=== PATIENT | female | born 1995 | race Caucasian/White ===

== ENCOUNTER 2018-12-26 17:03 | Emergency (ER) | payer OTHER ==
[~2018-12-26] VITALS: Ht 152.4 cm; Wt 85.8 kg
[~2018-12-26 17:03] MED LIST: CEPH250C16 PO; PREN-385 PO
[2018-12-26 17:11] VITALS: BP 121/69
--- NOTE | 2018-12-26 17:35 | NUR ---
DR. JAIN BEDSIDE EVALUATING PT
--- NOTE | 2018-12-26 17:48 | NUR ---
PATIENT PRESENTS TO ED WITH C/O ABDOMINAL PAIN, NAUSEA AND VOMITING X TODAY. PT DENIES ANY FEVER, DIARRHEA OR DYSURIA. PATIENT STATES PAIN OF 8/10 AT THIS TIME; VSS; PATIENT POSITIONED FOR COMFORT; HOB ELEVATED; BEDRAILS UP X1; BED DOWN.
--- NOTE | 2018-12-26 17:56 | NUR ---
PT TAKEN TO RAD
[2018-12-26 18:02] LABS: APPEARANCE,URINE HAZY (CLEAR); BILIRUBIN,URINE 1+ (NEGATIVE); BLOOD, URINE 3+ (NEGATIVE); COLOR,URINE YELLOW (YELLOW); LEUKOCYTE ESTERASE ,URINE 1+ (NEGATIVE); NITRITE, URINE NEGATIVE (NEGATIVE); PH,URINE 6.5 (5.0-9.0); UGLUCOSE NEGATIVE (NEGATIVE)
[2018-12-26 18:34] LABS: RBC,URINE 80-100 /HPF (0-5); WBC,URINE 16-25 (MOD) /HPF (0-5)
[2018-12-26 19:10] VITALS: BP 112/62
--- NOTE | 2018-12-26 19:10 | NUR ---
Patient discharged with v/s stable. Written and verbal after care instructions given and explained. Patient alert, oriented and verbalized understanding of instructions. Ambulatory with steady gait. All questions addressed prior to discharge. ID band removed. Patient advised to follow up with PMD. Rx of CIPRO AND PYRIDIUM given. Patient educated on indication of medication including possible reaction and side effects. Opportunity to ask questions provided and answered.
== END 2018-12-26 19:10 | disposition home or self-care (01) ==
LOC: MED 17:03
DX: N39.0 Urinary tract infection, site not specified (principal); Z79.899 Other long term (current) drug therapy
CPT/HCPCS: 74021; 81001; 81002; 81025; 87086; 99284

== ENCOUNTER 2019-03-24 14:31 | Emergency (ER) | payer OTHER ==
[~2019-03-24] VITALS: Ht 153 cm; Wt 88.6 kg
[2019-03-24 14:33] VITALS: BP 123/85
--- NOTE | 2019-03-24 14:39 | NUR ---
PT AMBULATED TO THE BATHROOM WITH STEADY GAIT. URINE CUP GIVEN.
--- NOTE | 2019-03-24 14:56 | NUR ---
PATIENT PRESENTS TO ED WITH C/O ABDOMINAL PAIN. PT STATES LLQ PAIN X2 DAYS. DENIES N/V/D; SKIN IS PINK/WARM/DRY; AAOX4 WITH EVEN AND STEADY GAIT; LUNGS CLEAR BL; HR EVEN AND REGULAR; PT DENIES ANY FEVER, CP, SOB, OR COUGH AT THIS TIME; PATIENT STATES PAIN OF 9/10 AT THIS TIME; VSS; PATIENT POSITIONED FOR COMFORT; HOB ELEVATED; BEDRAILS UP X2; BED DOWN. ER MD MADE AWARE OF PT STATUS.
[2019-03-24 15:29] LABS: BASOPHILS % (AUTO) 0.6 % (0.0-2.0); EOSINOPHILS # (AUTO) 0.1 K/uL (0-0.4); EOSINOPHILS % (AUTO) 0.9 % (0.0-4.0); HEMATOCRIT 35.7 % (36-48); HEMOGLOBIN 11.7 g/dL (12.0-16.0); LYMPHOCYTES # (AUTO) 2.4 K/uL (2.5-16.5); LYMPHOCYTES % (AUTO) 29.6 % (20.5-51.1); MEAN CORPUSCULAR HEMOGLOBIN 25 pg (27-31); MEAN CORPUSCULAR HGB CONC 33 g/dL (33-37); MEAN CORPUSCULAR VOLUME 77.2 fL (80-94); MONOCYTES # (AUTO) 0.5 K/uL (0.8-1.0); MONOCYTES % (AUTO) 6.7 % (1.7-9.3); NEUTROPHILS % (AUTO) 62.2 % (42.2-75.2); PLATELET COUNT (AUTO) 243 K/uL (140-450); RED BLOOD CELL COUNT(AUTO) 4.63 MIL/uL (4.20-5.40); RED CELL DISTRIBUTION WIDTH 14.8 % (11.6-13.7)
[2019-03-24 15:56] LABS: ANION GAP 12.9 (8-16); CARBON DIOXIDE 27.5 mmol/L (21-32); POTASSIUM 3.4 mmol/L (3.5-5.1)
[2019-03-24 15:57] LABS: ALBUMIN 3.3 g/dL (3.4-5.0); CREATININE 0.7 mg/dL (0.6-1.3); TOTAL BILIRUBIN 0.2 mg/dL (0.0-1.0)
[2019-03-24 16:51] VITALS: BP 123/85
--- NOTE | 2019-03-24 16:52 | NUR ---
Patient discharged with v/s stable. Written and verbal after care instructions given and explained. Patient verbalized understanding. Ambulatory with steady gait. All questions addressed prior to discharge. Advised to follow up with PMD.
== END 2019-03-24 16:52 | disposition home or self-care (01) ==
LOC: MED 14:31
DX: O26.899 Other specified pregnancy related conditions, unspecified trimester (principal); R10.32 Left lower quadrant pain; Z79.899 Other long term (current) drug therapy
CPT/HCPCS: 36415; 76801; 80053; 81002; 81025; 84702; 85025; 86900; 86901; 99284; Q0092

== ENCOUNTER 2019-05-07 18:11 | Emergency (ER) | payer OTHER ==
[~2019-05-07] VITALS: Ht 152.4 cm; Wt 88.5 kg
[2019-05-07 18:14] VITALS: BP 140/80
--- NOTE | 2019-05-07 18:14 | NUR ---
Patient ambulated to bed 7. RN evaluating patient at bedside.
[2019-05-07] MEDS ORDERED: NACL 0.9% 1,000 ML IV SCH (18:22)
[2019-05-07] MEDS ORDERED: ONDANSETRON 4 MG/2 ML VIAL IVP ONE (18:25)
--- NOTE | 2019-05-07 18:30 | NUR ---
23 Y/O FEMALE C/O HEMATEMESIS X 3 DAYS. VOMITING 10X DAILY KAMRYN RED. TAKING ZOFRAN ODT TO NO RELIEF. A/O X3; FOLLOWS COMMANDS;PERRLA +3. STATES DIZZINESS, WEAKNESS. 9/10 ABD CRAMPING PAIN. 10 WKS , LMP 02/16/19. . ERMD MADE AWARE. SIDE RAILSX1. HX- NONE NKDA
[2019-05-07 18:45] LABS: BASOPHILS % (AUTO) 0.3 % (0.0-2.0); EOSINOPHILS # (AUTO) 0.1 K/uL (0-0.4); EOSINOPHILS % (AUTO) 0.5 % (0.0-4.0); HEMATOCRIT 36.8 % (36-48); HEMOGLOBIN 11.8 g/dL (12.0-16.0); LYMPHOCYTES # (AUTO) 2.8 K/uL (2.5-16.5); LYMPHOCYTES % (AUTO) 21.3 % (20.5-51.1); MEAN CORPUSCULAR HEMOGLOBIN 25 pg (27-31); MEAN CORPUSCULAR HGB CONC 32 g/dL (33-37); MEAN CORPUSCULAR VOLUME 78.6 fL (80-94); MONOCYTES # (AUTO) 0.7 K/uL (0.8-1.0); MONOCYTES % (AUTO) 5.6 % (1.7-9.3); NEUTROPHILS # (AUTO) 9.4 K/uL (1.8-7.7); NEUTROPHILS % (AUTO) 72.3 % (42.2-75.2); PLATELET COUNT (AUTO) 262 K/uL (140-450); RED BLOOD CELL COUNT(AUTO) 4.69 MIL/uL (4.20-5.40); RED CELL DISTRIBUTION WIDTH 14.2 % (11.6-13.7)
[2019-05-07 18:56] LABS: ANION GAP 16.4 (8-16); CARBON DIOXIDE 21.9 mmol/L (21-32); CREATININE 0.5 mg/dL (0.6-1.3); POTASSIUM 3.3 mmol/L (3.5-5.1)
[2019-05-07 18:59] LABS: PROTHROMBIN TIME 9.9 secs (10.8-13.4)
[2019-05-07 19:01] LABS: ALBUMIN 3.1 g/dL (3.4-5.0); TOTAL BILIRUBIN 0.1 mg/dL (0.0-1.0)
--- NOTE | 2019-05-07 19:12 | NUR ---
Pt report given to TRISTON KAY. Transfer of care at this time.
--- NOTE | 2019-05-07 19:51 | NUR ---
Dr. Mendieta examining patient.
[2019-05-07 20:15] VITALS: BP 140/80
--- NOTE | 2019-05-07 20:15 | NUR ---
PT DISCHARGED WITH PAPERWORK. RX DICLEGIS FOR N/V. EDUCATED PT REGARDING MEDICATION AND S/E. EDUCATED PT REGARDING D/C DIAGNOSIS AND INSTRUCTIONS. PT VERBALIZED UNDERSTANDING OF TEACHING. TOLD PT TO FOLLOW UP WITH PCP AND WHEN TO RETURN TO ED. PT VSS. ALL QUESTIONS ANSWERED.
== END 2019-05-07 20:15 | disposition home or self-care (01) ==
LOC: MED 18:11
DX: O21.8 Other vomiting complicating pregnancy (principal); Z3A.10 10 weeks gestation of pregnancy; Z79.899 Other long term (current) drug therapy; Z79.2 Long term (current) use of antibiotics
CPT/HCPCS: 36415; 80053; 81002; 81025; 83690; 85025; 85610; 85730; 96361; 96374; 99284; J2405; J7030

== ENCOUNTER 2021-03-25 16:55 | Emergency (ER) | payer OTHER ==
[~2021-03-25] VITALS: Ht 154.9 cm; Wt 81.6 kg
[2021-03-25 17:29] VITALS: BP 119/69
--- NOTE | 2021-03-25 17:34 | NUR ---
LAKIA.HANDED ON URINE CUP.
[2021-03-25] MEDS ORDERED: MORPHINE SULFATE 4 MG/ML SYR IVP ONE (17:45)
[2021-03-25] MEDS ORDERED: ONDANSETRON 4 MG/2 ML VIAL IVP ONE (17:45)
[2021-03-25 18:03] LABS: BASOPHILS % (AUTO) 0.5 % (0.0-2.0); EOSINOPHILS % (AUTO) 0.4 % (0.0-4.0); HEMATOCRIT 36.8 % (36-48); HEMOGLOBIN 11.7 g/dL (12.0-16.0); LYMPHOCYTES # (AUTO) 3.3 K/uL (2.5-16.5); LYMPHOCYTES % (AUTO) 33.1 % (20.5-51.1); MEAN CORPUSCULAR HEMOGLOBIN 25 pg (27-31); MEAN CORPUSCULAR HGB CONC 32 g/dL (33-37); MEAN CORPUSCULAR VOLUME 77.4 fL (80-94); MONOCYTES # (AUTO) 0.4 K/uL (0.8-1.0); MONOCYTES % (AUTO) 4.4 % (1.7-9.3); NEUTROPHILS # (AUTO) 6.2 K/uL (1.8-7.7); NEUTROPHILS % (AUTO) 61.6 % (42.2-75.2); PLATELET COUNT (AUTO) 300 K/uL (140-450); RED BLOOD CELL COUNT(AUTO) 4.75 MIL/uL (4.20-5.40); RED CELL DISTRIBUTION WIDTH 15.2 % (11.6-13.7); WHITE BLOOD COUNT (AUTO) 10.1 K/uL (4.8-10.8)
[2021-03-25 19:14] LABS: ALBUMIN 3.6 g/dL (3.4-5.0); ANION GAP 14.5 (8-16); CARBON DIOXIDE 26.1 mmol/L (21-32); CREATININE 0.7 mg/dL (0.6-1.3); POTASSIUM 3.6 mmol/L (3.5-5.1); TOTAL BILIRUBIN 0.2 mg/dL (0.0-1.0)
--- NOTE | 2021-03-25 19:20 | NUR ---
TO BED #11 AMBULATORY
--- NOTE | 2021-03-25 19:40 | NUR ---
25 YO F BIB SELF WITH C/C OF EPIGASTRIC PAIN X2 DAYS 02/22. +N/V, TOOK ZOFRAN WITH NO RELIEF. PT'S ABD IS DISTENDED AND TENDER TO TOUCH. BOWEL SOUNDS [id number]. ;LAST BM WAS THIS MORNING. PT DENIES CHANGES IN BM AND URINATION. DENIES HX, RX AND ALLERG
[2021-03-25] MEDS ORDERED: ALUMINUM HYD/MAG/SIMETHICONE 30 ML UDC PO ONE ×2 (20:00→20:20)
[2021-03-25] MEDS ORDERED: FAMOTIDINE 20 MG TAB PO ONE ×2 (20:00→20:20)
[2021-03-25] MEDS ORDERED: FAMOTIDINE 20 MG TAB ONE (20:22)
[2021-03-25] MEDS ORDERED: ALUMINUM HYD/MAG/SIMETHICONE 30 ML UDC ONE (20:22)
[2021-03-25 20:32] LABS: APPEARANCE,URINE CLEAR (CLEAR); BILIRUBIN,URINE 2+ (NEGATIVE); BLOOD, URINE NEGATIVE (NEGATIVE); COLOR,URINE YELLOW (YELLOW); LEUKOCYTE ESTERASE ,URINE 2+ (NEGATIVE); NITRITE, URINE NEGATIVE (NEGATIVE); PH,URINE 6.5 (5.0-9.0); UGLUCOSE NEGATIVE (NEGATIVE)
[2021-03-25 20:39] LABS: RBC,URINE 0-5 /HPF (0-5)
[2021-03-25] MEDS ORDERED: FAMO-90 PO (20:51)
[2021-03-25] MEDS ORDERED: ACETAMINOPHEN EXTRA STRENGTH 500 MG TAB PO ONE (21:05)
[2021-03-25 21:08] VITALS: BP 119/69
--- NOTE | 2021-03-25 21:08 | NUR ---
Patient discharged with v/s stable. Written and verbal after care instructions given and explained. Patient alert, oriented and verbalized understanding of instructions. Ambulatory with steady gait. All questions addressed prior to discharge. ID band removed. Patient advised to follow up with PMD. Rx of FAMOTIDINE given. Patient educated on indication of medication including possible reaction and side effects. Opportunity to ask questions provided and answered.
== END 2021-03-25 21:08 | disposition home or self-care (01) ==
LOC: MED 16:55
DX: K29.70 Gastritis, unspecified, without bleeding (principal); Z79.899 Other long term (current) drug therapy; Z79.2 Long term (current) use of antibiotics
CPT/HCPCS: 36415; 76705; 80053; 81001; 81025; 83690; 85025; 87086; 99284; Q0092

== ENCOUNTER 2022-03-27 19:27 | Emergency (ER) | payer OTHER ==
[~2022-03-27] VITALS: Ht 152.4 cm; Wt 90.7 kg
[~2022-03-27 19:27] MED LIST changes: +FAMO-90 PO
[2022-03-27 19:38] VITALS: BP 137/72
--- NOTE | 2022-03-27 19:45 | NUR ---
pt to lobby
[2022-03-27] MEDS ORDERED: NAPR-1704 PO (20:43)
[2022-03-27] MEDS ORDERED: KETOROLAC 30 MG/ML VIAL IM ONE (20:45)
--- NOTE | 2022-03-27 21:11 | NUR ---
Patient discharged with v/s stable. Written and verbal after care instructions ABOUT EPIDERMAL CYST given and explained. Patient alert, oriented and verbalized understanding of instructions. Ambulatory with steady gait. All questions addressed prior to discharge. ID band removed. Patient advised to follow up with PMD. Rx of NAPROXEN given. Patient educated on indication of medication including possible reaction and side effects. Opportunity to ask questions provided and answered.
== END 2022-03-27 21:11 | disposition home or self-care (01) ==
LOC: MED 19:27
DX: L72.3 Sebaceous cyst (principal); Z79.1 Long term (current) use of non-steroidal anti-inflammatories (NSAID); Z79.899 Other long term (current) drug therapy; Z79.2 Long term (current) use of antibiotics
CPT/HCPCS: 81025; 96372; 99283; J1885

== ENCOUNTER 2023-08-26 19:45 | Emergency (ER) | payer OTHER ==
[~2023-08-26] VITALS: Ht 157.5 cm; Wt 104.3 kg
[~2023-08-26 19:45] MED LIST changes: +NAPR-1704 PO
[2023-08-26 20:06] VITALS: BP 132/82; PULSE 87; RESP 16; TEMP 96.8; O2SAT 100
[2023-08-26] MEDS ORDERED: CEPH-588 PO (21:10)
[2023-08-26] MEDS ORDERED: ACET-10509 PO (21:10)
[2023-08-26] MEDS ORDERED: PYR100 PO (21:10)
[2023-08-26] MEDS ORDERED: LID5T TP (21:10)
[2023-08-26] MEDS: PHENAZOPYRIDINE 100 MG TAB PO ONE (21:27)
[2023-08-26] MEDS: KETOROLAC 30 MG/ML VIAL IM ONE (21:28)
[2023-08-26 21:30] LABS: APPEARANCE,URINE CLEAR (CLEAR); BILIRUBIN,URINE NEGATIVE (NEGATIVE); BLOOD, URINE TRACE-I (NEGATIVE); COLOR,URINE YELLOW (YELLOW); LEUKOCYTE ESTERASE ,URINE NEGATIVE (NEGATIVE); NITRITE, URINE NEGATIVE (NEGATIVE); PROTEIN,URINE NEGATIVE (NEGATIVE); UGLUCOSE NEGATIVE (NEGATIVE); UROBILINOGEN,URINE 0.2 EU/dL (0.2 - 1)
== END 2023-08-26 21:45 | disposition home or self-care (01) ==
LOC: MED 19:45
DX: R30.0 Dysuria (principal); M54.50 Low back pain, unspecified; R35.0 Frequency of micturition; Z79.899 Other long term (current) drug therapy
CPT/HCPCS: 81003; 81025; 96372; 99283; J1885